=== PATIENT | male | born 1960 | race Caucasian/White ===

== ENCOUNTER 2023-04-04 18:44 | Emergency (ER) | payer OTHER ==
[2023-04-04] MEDS ORDERED: Lidocaine 1% 30 ML SDV INFILT ONE (19:00)
== END 2023-04-04 19:57 | disposition home or self-care (01) ==
LOC: LB.ED 18:44
DX: S61.210A Laceration without foreign body of right index finger without damage to nail, initial encounter (principal); I10 Essential (primary) hypertension; F17.210 Nicotine dependence, cigarettes, uncomplicated; Z79.899 Other long term (current) drug therapy; W26.0XXA Contact with knife, initial encounter
CPT/HCPCS: 12001; 99282